=== PATIENT | female | born 1980 | race Caucasian/White ===

== ENCOUNTER → 2018-07-29 17:55 | Outpatient (REF) | payer OTHER, MEDICAID, SELFPAY | LOC: LAB 17:55 | PROVIDERS: Visit Provider Physician Assistant Medical | DX: S81.802A Unspecified open wound, left lower leg, initial encounter (principal) | CPT/HCPCS: 87070; 87075; 87077; 87147; 87186; 87205 ==

== ENCOUNTER 2021-06-20 15:57 | Emergency (ER) | payer OTHER, MEDICAID, SELFPAY ==
[2021-06-20 16:06] VITALS: BP 107/79; PULSE 96; RESP 18; TEMP 36.4; O2SAT 100; BMI 30.2
--- NOTE | 2021-06-20 17:00 | ED.LOWEXIN ---
HPI - Extremity Injury (Lower) General Chief Complaint: Extremity Injury, Lower Stated Complaint: Rt Big Toe Infection, Burning Muscle Pain Time Seen by Provider: 06/20/21 16:52 Source: patient Mode of arrival: Wheelchair Limitations: no limitations History of Present Illness HPI Narrative: Patient is a 40-year-old female. Has an underlying spinal cord injury secondary to a trauma that occurred several years ago. She has flexion of her toes at baseline. She states that her right toe has become red and painful. She states there has been some drainage from the area. It does rub against her shoe in this area. She feels like it is infected. She says that stuff is ?squirting ?from it. This is been going on for the past several weeks if not longer. Related Data Previous Rx's Medication Instructions Recorded cephalexin 500 mg capsule 500 mg PO QID 5 Days #20 cap 06/20/21 Allergies Allergy/AdvReac Type Severity Reaction Status Date / Time No Known Drug Allergies Allergy Verified 06/20/21 16:06 Review of Systems Musculoskeletal Musculoskeletal: Reports system reviewed and no additional complaints, except as documented and Reports as per HPI Integumentary/Breasts Skin/Breast: Reports system reviewed and no additional complaints, except as documented and Reports as per HPI Neurologic Comments: No change in her underlying neurologic disabilities Hematologic/Lymphatic On Anticoagulants: No Patient History Medical History Spinal cord injury Social History Smoking Status: Current every day smoker Smoking Status: Current every day smoker tobacco type: cigarettes Substance Use Type: marijuana and methamphetamine Exam Initial Vital Signs Initial Vital Signs: Vital Signs Temperature 97.5 F L 06/20/21 16:06 Pulse Rate 96 H 06/20/21 16:06 Respiratory Rate 18 06/20/21 16:06 Blood Pressure 107/79 06/20/21 16:06 Pulse Oximetry 100 06/20/21 16:06 Resp Effort & Inspection: normal respiratory effort Cardio Rate: regular rate Pulses: dorsalis pedis present on the right Skin Other: Patient does have redness over the right great toe. There is a 0.5 cm by 0.5 cm area of what appears to be thickening most likely from rubbing against her shoe. The redness does not extend above the MTP joint. It is somewhat warm to touch. Cannot express any thing from the wound. Neuro Other: Flex an of the toes of the right foot Extrem General: capillary refill normal Course Orders Ordered: ED Orders 06/20/21 16:40 Consult to CRATING AND MOVING ESTIMATOR - [employer] Operator Stat Discontinued Medications Acetaminophen (Acetaminophen 325 Mg Tablet) 650 mg PO NOW ONE Stop: 06/20/21 17:18 Vital Signs Vital signs: Vital Signs - 8 hr 06/20/21 16:06 Temperature 97.5 F L Pulse Rate 96 H Respiratory Rate 18 Blood Pressure 107/79 Pulse Oximetry 100 MDM - Extremity Injury (Lower) MDM Narrative Medical decision making narrative: Patient is nontoxic. Vital signs unremarkable. Does have redness around the great toe in she potentially could have an infection here especially given the fact that this area seems to rub against her issue. Will start on antibiotics. She was given a prescription for this. She was seen by social work. She was told that she could take Tylenol/ibuprofen for discomfort. She was given return precautions. Discharge Plan Departure Patient Disposition: Home Clinical Impression: Great toe pain Activity Restrictions/Additional Instructions: Given your presentation today we will start you on antibiotics. It is important that you have an appointment with a follow-up provider. Social Work has been involved but you can also contact the call center [phone]. Take the antibiotics as directed. Prescriptions: New cephalexin 500 mg capsule 500 mg PO QID 5 Days Qty: 20 0RF
[2021-06-20] MEDS: ACETAMINOPHEN 325 MG TABLET 650 MG PO (17:36)
[2021-06-20 17:50] VITALS: BP 101/73; PULSE 103; RESP 18; TEMP 36.2; O2SAT 99
--- NOTE | 2021-06-20 17:59 | CM.SWNOTE ---
RETAIL BANKER Note RETAIL BANKER receives consult for community resources support and due to patient's friend's concern for patient's wellbeing. Patient is 40 y.o female who resides with at [facility]. Patient endorses she is connected with [employer] support services. Patient presents to the ED with concern for an infection on her big toe. Patient states she has had this pain for a few years but endorses anxiety about going to hospitals. Patient has hx of Spinal Cord Injury and endorses extensive hospital stay at [facility]. Prior to meeting with patient, patient's friend requests to speak with RETAIL BANKER and endorses concern for patient. Friend endorses spinal cord injury, minimal use of hands and patient's anxiety of hospitals. Friend endorses she encouraged patient to come to ED. Friend endorses she is a support for patient. RETAIL BANKER enters room to meet with patient. Patient states she has a good living situation and is connected with housing services through [employer]. Patient states she was hesitant to come to the ED due to hx of feeling judged. Patient endorses that she is concerned about the significant pain in her big toe on her right foot. Patient states that she does not have a PCP and is interested in RETAIL BANKER assisting with scheduling an establish care appt. Patient endorses 10/10 pain score. Patient states she has been off of pain medications in the last year because she wants to be clear headed. 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 Patient states she smokes meth about 1-2 times a week and it is not hardcore use in comparison to her previous use. Patient states she used to be on Methadone. Patient states that she used Meth 3 days ago. RETAIL BANKER discusses that [facility] [employer] [facility], patient states that she and her plan to engage in those services. Patient endorses significant anxiety. RETAIL BANKER discusses and shows patient square breathing technique. RETAIL BANKER asks how RETAIL BANKER can further assist patient. Patient requests clothing resources. RETAIL BANKER provides patient with local clothing resources and further housing resources through the [facility] website. Plan: RETAIL BANKER to contact PCP offices on Wednesday to schedule patient with establish care PCP appt. RETAIL BANKER to f/u with patient on Wednesday. Patient to d/c to community when medically clear. KEVIN Acosta
--- NOTE | 2021-06-25 12:41 | CM.SWNOTE ---
FACILITIES AND GROUNDS DIRECTOR F/U Note FACILITIES AND GROUNDS DIRECTOR calls [facility] and [facility] provider lines to assist in establishing care for a PCP. [facility] reports they are not accepting new patient. [facility] reports they are booked but can take down patient information and encourages patient to call in to schedule as well. FACILITIES AND GROUNDS DIRECTOR attempts to call on 06/23/21 and patient's answers phone then hangs up. FACILITIES AND GROUNDS DIRECTOR calls again on 06/25/21 and leaves message informing patient and to call call center for further attempts to establish care with PCP. Jessika Guzman, FACILITIES AND GROUNDS DIRECTOR
== END 2021-06-20 17:51 | disposition home or self-care (01) ==
PROVIDERS: Emergency Provider Emergency Medicine
DX: M79.674 Pain in right toe(s) (principal); F17.210 Nicotine dependence, cigarettes, uncomplicated
CPT/HCPCS: 99282; 99283